=== PATIENT | female | born 1995 | race American Indian/Alaskan Native ===

== ENCOUNTER 2017-03-23 02:22 | Inpatient (IN) | payer OTHER ==
[2017-03-23] MEDS ORDERED: Citric Acid/Sodium Citrate Solution 30 ML Cup PO ONE (02:54)
[2017-03-23] MEDS ORDERED: Sodium Chloride 0.9% 10 ML Syringe FLUSH PRN ×2 (02:54→06:08)
[2017-03-23] MEDS ORDERED: ceFAZolin 2 GM in Premix Bag 1 BAG IV ONE (02:54)
[2017-03-23] MEDS ORDERED: ceFAZolin 1 GM in Premix Bag 1 BAG IV ONE (02:54)
[2017-03-23] MEDS ORDERED: Metoclopramide 10 MG/2 ML SDV IVPUSH ONE (02:54)
[2017-03-23] MEDS ORDERED: Oxytocin/Lactated Ringers 10 UNIT/1,000 ML BAG IV SCH (03:00)
[2017-03-23] MEDS: Lactated Ringers 1,000 ML IV SCH ×2 (03:17→04:10)
[2017-03-23] MEDS ORDERED: Bupivacaine 0.5% 30 ML SDV ONE (04:26)
[2017-03-23] MEDS ORDERED: Morphine PF 10 MG/10 ML SDV ONE (04:42)
[2017-03-23] MEDS ORDERED: ceFAZolin 1 GM Vial ONE ×2 (04:42→05:19)
[2017-03-23] MEDS ORDERED: Oxytocin 10 Units/1 ML SDV ONE (04:45)
[2017-03-23] MEDS ORDERED: Phenylephrine 1% 10 MG/ML SDV ONE (04:46)
--- NOTE | 2017-03-23 04:49 | PCM.LDHP ---
L&D History of Present Illness - General Date of Service: 03/23/17 Admit Problem/Dx: Patient Status Order with Admit Dx/Problem 03/23/17 02:56 Patient Status [ADT] Routine Admission Diagnosis/Problem Admission Diagnosis/Problem Source of Information: Patient History Limitations: Reports: No Limitations - History of Present Illness Introduction:: 22-year-old previous section planning repeat section declined vaginal after section () GBS positive gestational diabetes and recurrent urinary tract infections of complicated this . The patient started sadaf possibly 0030 hours on 03/23/17. Patient has had no leakage of fluid. Ancef 2 g has been ordered prior surgery along with SCDs. 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: , Other (See Below) : 2 Para: 1 (1001) Other OB/BYN History: 1 prior Endocrine/Metabolic History: Reports: Diabetes, Gestational - Infectious Disease History Infectious Disease History: Reports: Chicken Pox - Past Surgical History HEENT Surgical History: Reports: Oral Surgery, Tonsillectomy Social & Family History - Tobacco Use Smoking Status *Q: Former Smoker Packs/Tins Daily: 0.5 Used Tobacco, but Quit: Yes Month Tobacco Last Used: may Second Hand Smoke Exposure: No - Alcohol Use Days Per Week of Alcohol Use: 0 - Recreational Drug Use Recreational Drug Use: No H&P Review of Systems - Review of Systems: Review Of Systems: See Below General: Reports: No Symptoms HEENT: Reports: No Symptoms Pulmonary: Reports: No Symptoms Cardiovascular: Reports: No Symptoms Gastrointestinal: Reports: No Symptoms Genitourinary: Reports: No Symptoms Musculoskeletal: Reports: No Symptoms Skin: Reports: No Symptoms Psychiatric: Reports: No Symptoms Neurological: Reports: No Symptoms Hematologic/Lymphatic: Reports: No Symptoms Immunologic: Reports: No Symptoms L&D Exam - Exam Exam: See Below - Vital Signs Vital Signs: Last Vital Signs Temp 97.6 F 03/23/17 02:23 Pulse 94 03/23/17 02:23 Resp 16 03/23/17 02:23 BP 127/69 03/23/17 02:23 Pulse Ox Weight: 273 lb 8 oz - OB Specific Contraction Duration (sec): 60 Contraction Frequency (min): Every 2-3 Contraction Intensity: Moderate Movement: Active Heart Tones: Present Heart Tones per Min: 140 Heart Rate (FHR) Variability: Moderate (6-25 bmp) Presentation: Vertex - Perla Score Perla Score Cervix Position: Anterior Perla Score Consistency: Soft Perla Score Effacement: 31-50% Eprla Score Dilation: 1-2 cm Perla Score 's Station: -3 Perla Score Total: 6 - Exam General: Alert, Oriented HEENT: Conjunctiva Clear, Mucosa Moist & [place], Posterior Pharynx Clear, TMs Clear, PERRLA Neck: Supple, Trachea Midline Lungs: Clear to Auscultation, Normal Respiratory Effort Cardiovascular: Regular Rate, Regular Rhythm GI/Abdominal Exam: Normal Bowel Sounds, Soft, Non-Tender, No Organomegaly, No Distention, No Abnormal Bruit, No Mass, Pelvis Stable Genitourinary: Normal external exam, Normal bimanual exam, Normal speculum exam Back Exam: Normal Inspection, Full Range of Motion Extremities: Normal Inspection, Normal Range of Motion, Non-Tender, No Pedal Edema, Normal Capillary Refill Skin: Warm, Dry, Intact Neurological: Reflexes Equal Bilateral Psychiatric: Alert, Normal Affect, Normal Mood - Patient Data Lab Results Last 24 hrs: Laboratory Results - last 24 hr 03/23/17 03/23/17 Range/Units 03:08 03:08 WBC 10.11 H (3.98-10.04) K/mm3 RBC 4.44 (3.98-5.22) M/mm3 Hgb 12.9 (11.2-15.7) gm/L Hct 38.3 (34.1-44.9) % MCV 86.3 (79.4-94.8) fl MCH 29.1 (25.6-32.2) pg MCHC 33.7 (32.2-35.5) g/dl RDW Std Deviation 42.3 (36.4-46.3) fL Plt Count 253 (182-369) K/mm3 MPV 9.7 (9.4-12.3) fl Neut % (Auto) 69.0 (34.0-71.1) % Lymph % (Auto) 22.5 (19.3-51.7) % [place] % (Auto) 7.1 (4.7-12.5) % Eos % (Auto) 0.9 (0.7-5.8) Baso % (Auto) 0.2 (0.1-1.2) % Neut # (Auto) 6.98 H (1.56-6.13) K/mm3 Lymph # (Auto) 2.27 (1.18-3.74) K/mm3 [place] # (Auto) 0.72 H (0.24-0.36) K/mm3 Eos # (Auto) 0.09 (0.04-0.36) K/mm3 Baso # (Auto) 0.02 (0.01-0.08) K/mm3 Blood Type O POSITIVE Gel Antibody Screen Negative Result Diagrams: 03/23/17 03:08 - Problem List (1) 38 weeks gestation of SNOMED Code(s): 69297376 ICD Code: Z3A.38 - 38 WEEKS GESTATION OF Status: Acute Current Visit: Yes (2) GBS carrier SNOMED Code(s): 2135411889727 ICD Code: Z22.330 - CARRIER OF GROUP B STREPTOCOCCUS Status: Acute Current Visit: Yes (3) delivery, delivered, current hospitalization SNOMED Code(s): 049167484 ICD Code: O82 - ENCOUNTER FOR DELIVERY WITHOUT INDICATION Status: Acute Current Visit: Yes (4) Gestational diabetes SNOMED Code(s): 14061003 ICD Code: O24.419 - GESTATIONAL DIABETES MELLITUS IN , UNSP CONTROL Status: Acute Current Visit: Yes Qualifiers: Gestational diabetes mellitus control: diet-controlled Trimester: third trimester Qualified Code(s): O24.410 - Gestational diabetes mellitus in , diet controlled Problem List Initiated/Reviewed/Updated: No Orders Last 24hrs: Active Orders 24 hr Category Date Time Status Patient Status [ADT] Routine ADT 03/23/17 02:56 Active Antiembolic Devices [RC] .Routine Care 03/23/17 02:58 Active Communication Order [RC] ROUTINE Care 03/23/17 02:56 Active Heart Tones [RC] PER UNIT ROUTINE Care 03/23/17 02:56 Active Peripheral IV Care [RC] . DIRECTED Care 03/23/17 02:56 Active Procedure Site Prep Instruct [RC] ASDIRECTED Care 03/23/17 02:56 Active Urinary Catheter Assessment [RC] ASDIRECTED Care 03/23/17 02:54 Active VTE/DVT Education [RC] PER UNIT ROUTINE Care 03/23/17 02:58 Active Verify Patient Consent Obtain [RC] PER UNIT ROUTINE Care 03/23/17 02:56 Active Vital Signs [RC] PFP Care 03/23/17 02:56 Active FLU Vacc [id number](6MOS UP)/PF [Flulaval Quad [id number] Med 03/23/17 10:00 Once ] 60 mcg IM .ONCE ONE Lactated Ringers [Ringers, Lactated] 1,000 ml Med 03/23/17 03:00 Active IV ASDIRECTED Oxytocin/Lactated Ringers [Pitocin in LR 10 Units/1,000 Med 03/23/17 03:00 Active ML] 10 unit in 1,000 ml IV ASDIRECTED Sodium Chloride 0.9% [Saline Flush] Med 03/23/17 02:54 Active 10 ml FLUSH ASDIRECTED PRN DVT/VTE Prophylaxis Reflex [OM.PC] Routine Oth 03/23/17 02:54 Ordered Peripheral IV Insertion Adult [OM.PC] Routine Oth 03/23/17 02:56 Ordered Schedule Procedure [COMM] Per Unit Routine Oth 03/23/17 02:56 Ordered Resuscitation Status Routine Resus Stat 03/23/17 02:54 Ordered Medication Orders Lactated Ringer's (Ringers, Lactated) 1,000 mls @ 125 mls/hr IV ASDIRECTED [facility] Last Admin: 03/23/17 04:10 Dose: 125 mls/hr Infusion: 03/23/17 04:10 Dose: 125 mls/hr Admin: 03/23/17 03:17 Dose: 125 mls/hr Oxytocin/Lactated Ringer's (Pitocin In Lr 10 Units/1,000 Ml) 10 unit in 1,000 mls @ 100 mls/hr IV ASDIRECTED SABINO PRN Reason: Protocol Influenza Virus Vaccine (Flulaval Quad ) 60 mcg IM .ONCE ONE Stop: 03/23/17 10:01 Sodium Chloride (Saline Flush) 10 ml FLUSH ASDIRECTED PRN PRN Reason: Keep Vein Open
[2017-03-23] MEDS ORDERED: Ketorolac 30 MG/ML SDV ONE (05:56)
--- NOTE | 2017-03-23 06:01 | PCM.OPNOTE ---
- General Post-Op/Procedure Note Date of Surgery/Procedure: 03/23/17 Operative Procedure(s): Repeat low segment transverse Pre Op Diagnosis: 38 weeks 6 days estimated gestational age, previous section, gestational diabetes, group B strep carrier Post-Op Diagnosis: Same Anesthesia Technique: Spinal Primary Surgeon: Jose Lombardo Secondary Surgeon: Frank Lizarraga Anesthesia Provider: Pineda Weinberg Reason Milker Machine Was Necessary: Patient safety decrease comorbidity, co-mortality, retraction, obese patient, facility standard of care. Role of Milker Machine: Patient safety, retraction, reduce operating time. Fluid Replacement, Intraop: 3,500 Output, Urine Amount: 475 EBL in mLs: 800 Drain/Tube Comments:: Becerra catheter Complications: None Condition: Good Free Text/Narrative:: Intake & Output 03/22/17 03/22/17 03/23/17 14:59 22:59 06:59 Intake Total 1000 Balance 1000 Patient was transported to operating room #1 and placed under spinal anesthesia in the supine position wedge under the right hip and right flank. Prepared and draped in a sterile fashion including vaginal prep and Becerra catheter placed gravity drainage and abdominal prep performed. SCDs in place and functioning prior surgery 3 g of Ancef given prior surgery. Timeout performed. Adequate level of anesthesia was confirmed patient's was brought to the operating room injecting 20 mL of 0.5% Marcaine in the area of the planned incision incision was made sharp section carried to into the anterior fascia peritoneal cavity was entered without difficulty bladder flap created pushed caudad the low uterine segment had thinned out due to her recurrent contractions. The low segment transverse performed amnionic fluid clear upon entry into the amnionic cavity. The vacuum extraction was required attempted with mushroom first 10 seconds in the green, replaced with final vacuum 15 seconds in the green with delivery of a female liveborn 0527 hrs. on Wednesday03/23/17 weight 8 lbs. 12 oz. 8/9 at one and [address] [employer] in attendance. Cord blood was collected from three-vessel cord the placenta was removed manually endometrial cavity inspected sponge needle pack asthma sharp count correct times one the uterine incision closed in 2 layers with 0 Monocryl running locking suture for the first layer and second layer modified [place]t horizontal dictating suture of 0 Monocryl as well. 2 additional [id number] sutures were placed for hemostasis utilizing 0 Monocryl. Both tubes and ovaries were normal clot screen from the gutters and cul-de-sac uterus replaced into the abdominal cavity and the area of surgery inspected no bleeding sponge needle pack asthma sharp count correct 2. Anterior fascia was closed with a running suture of #1 PDS irrigation carried out for the subcutaneous tissue and 3 interrupted sutures of 0 Monocryl placed to approximate the subcutaneous tissue and the skin was closed subcuticular with 3-0 Monocryl Elmer needle. Preneo Dermabond applied. Patient transported postanesthesia care unit in satisfactory condition no blood transfusions required.
[2017-03-23] MEDS ORDERED: diphenhydrAMINE 50 MG/ML SDV IVPUSH PRN (06:04)
--- NOTE | 2017-03-23 06:06 | PCM.POSTAN ---
POST ANESTHESIA ASSESSMENT - MENTAL STATUS Mental Status: Alert, Oriented - VITAL SIGNS Pulse Rate: 83 SaO2: 96 Resp Rate: 8 Blood Pressure: 97/51 Temperature: 36.2 C - RESPIRATORY Respiratory Status: Respiratory Rate WNL, Airway Patent, O2 Saturation Stable - CARDIOVASCULAR CV Status: Pulse Rate WNL, Blood Pressure Stable - GASTROINTESTINAL GI Status: No Symptoms - PAIN Pain Score: 0 - POST OP HYDRATION Hydration Status: Adequate & Stable - OBSERVATIONS Free Text/Narrative:: no anesthesia complications noted
[2017-03-23] MEDS ORDERED: Lactated Ringers 1,000 ML ONE ×3 (06:07→09:29)
--- NOTE | 2017-03-23 06:07 | PCM.PREANE ---
Preanesthetic Assessment - Anesthesia/Transfusion/Family Hx Anesthesia History: Prior Anesthesia Without Reaction Family History of Anesthesia Reaction: No Transfusion History: No Prior Transfusion(s) - Review of Systems General: No Symptoms Pulmonary: No Symptoms Cardiovascular: No Symptoms Gastrointestinal: No Symptoms Neurological: No Symptoms Other: Reports: Diabetes (check at 0545 was 85) - Physical Assessment NPO Status Date: 03/23/17 NPO Status Time: 03:00 Pulse: 83 O2 Sat by Pulse Oximetry: 96 Respiratory Rate: 8 Blood Pressure: 97/51 Temperature: 36.2 C Vital Signs: Last Vital Signs Temp 36.2 C 03/23/17 06:06 Pulse 83 03/23/17 06:06 Resp 8 L 03/23/17 06:06 BP 97/51 L 03/23/17 06:06 Pulse Ox 96 03/23/17 06:06 Height: 1.65 m Weight: 124.058 kg ASA Class: 2E Mental Status: Alert & Oriented x3 Airway Class: Mallampati = 2 Dentition: Reports: Normal Dentition Thyro-Mental Finger Breadths: 3 Mouth Opening Finger Breadths: 3 ROM/Head Extension: Full Lungs: Clear to Auscultation, Normal Respiratory Effort Cardiovascular: Regular Rate, Regular Rhythm - Lab Values: Laboratory Last Values WBC 10.11 K/mm3 (3.98-10.04) H 03/23/17 03:08 RBC 4.44 M/mm3 (3.98-5.22) 03/23/17 03:08 Hgb 12.9 gm/L (11.2-15.7) 03/23/17 03:08 Hct 38.3 % (34.1-44.9) 03/23/17 03:08 MCV 86.3 fl (79.4-94.8) 03/23/17 03:08 MCH 29.1 pg (25.6-32.2) 03/23/17 03:08 MCHC 33.7 g/dl (32.2-35.5) 03/23/17 03:08 RDW Std Deviation 42.3 fL (36.4-46.3) 03/23/17 03:08 Plt Count 253 K/mm3 (182-369) 03/23/17 03:08 MPV 9.7 fl (9.4-12.3) 03/23/17 03:08 Neut % (Auto) 69.0 % (34.0-71.1) 03/23/17 03:08 Lymph % (Auto) 22.5 % (19.3-51.7) 03/23/17 03:08 [place] % (Auto) 7.1 % (4.7-12.5) 03/23/17 03:08 Eos % (Auto) 0.9 (0.7-5.8) 03/23/17 03:08 Baso % (Auto) 0.2 % (0.1-1.2) 03/23/17 03:08 Neut # (Auto) 6.98 K/mm3 (1.56-6.13) H 03/23/17 03:08 Lymph # (Auto) 2.27 K/mm3 (1.18-3.74) 03/23/17 03:08 [place] # (Auto) 0.72 K/mm3 (0.24-0.36) H 03/23/17 03:08 Eos # (Auto) 0.09 K/mm3 (0.04-0.36) 03/23/17 03:08 Baso # (Auto) 0.02 K/mm3 (0.01-0.08) 03/23/17 03:08 POC Glucose 85 mg/dL (70-105) 03/23/17 04:46 Blood Type O POSITIVE 03/23/17 03:08 Gel Antibody Screen Negative 03/23/17 03:08 - Allergies Allergies/Adverse Reactions: Allergies Allergy/AdvReac Type Severity Reaction Status Date / Time No Known Allergies Allergy Verified 03/23/17 02:43 - Anesthesia Plan Pre-Op Medication Ordered: Antacids - Acknowledgements Anesthesia Type Planned: Spinal Pt an Appropriate Candidate for the Planned Anesthesia: Yes Alternatives and Risks of Anesthesia Discussed w Pt/Guardian: Yes Pt/Guardian Understands and Agrees with Anesthesia Plan: Yes PreAnesthesia Questionnaire Gastrointestinal History: Reports: GERD Genitourinary History: Reports: UTI, Recurrent 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: , Other (See Below) Other OB/BYN History: 1 prior Endocrine/Metabolic History: Reports: Diabetes, Gestational - Infectious Disease History Infectious Disease History: Reports: Chicken Pox - Past Surgical History HEENT Surgical History: Reports: Oral Surgery, Tonsillectomy - SUBSTANCE USE Smoking Status *Q: Former Smoker Tobacco Use Within Last Twelve Months: No Second Hand Smoke Exposure: No Days Per Week of Alcohol Use: 0 Recreational Drug Use History: No - HOME MEDS Home Medications: Home Meds Nitrofurantoin [place]/Macrocryst [Macrobid] 03/23/17 [History] - CURRENT (IN HOUSE) MEDS Current Meds: Current Medications Diphenhydramine HCl (Benadryl) 25 mg IVPUSH Q6H PRN PRN Reason: Itching Lactated Ringer's (Ringers, Lactated) 1,000 mls @ 125 mls/hr IV ASDIRECTED SABINO Last Admin: 03/23/17 04:10 Dose: 125 mls/hr Oxytocin/Lactated Ringer's (Pitocin In Lr 10 Units/1,000 Ml) 10 unit in 1,000 mls @ 100 mls/hr IV ASDIRECTED SABINO PRN Reason: Protocol Influenza Virus Vaccine (Flulaval Quad [id number]) 60 mcg IM .ONCE ONE Stop: 03/23/17 10:01 Sodium Chloride (Saline Flush) 10 ml FLUSH ASDIRECTED PRN PRN Reason: Keep Vein Open Discontinued Medications Bupivacaine HCl (Marcaine 0.5%) Confirm Administered Dose 30 ml .ROUTE .STK-MED ONE Stop: 03/23/17 04:27 Cefazolin Sodium (Ancef) Confirm Administered Dose 2 gm .ROUTE .STK-MED ONE Stop: 03/23/17 04:43 Cefazolin Sodium (Ancef) Confirm Administered Dose 1 gm .ROUTE .STK-MED ONE Stop: 03/23/17 05:20 Citric Acid/Sodium Citrate (Bicitra Solution) 30 ml PO ONETIME ONE Stop: 03/23/17 02:55 Last Admin: 03/23/17 04:35 Dose: 30 ml Cefazolin Sodium/Dextrose 1 gm (/ Premix) 50 mls @ 100 mls/hr IV ONETIME ONE Stop: 03/23/17 03:23 Cefazolin Sodium/Dextrose 2 gm (/ Premix) 50 mls @ 100 mls/hr IV ONETIME ONE Stop: 03/23/17 03:23 Lactated Ringer's (Ringers, Lactated) Confirm Administered Dose 1,000 mls @ as directed .ROUTE .STK-MED ONE Stop: 03/23/17 06:08 Lactated Ringer's (Ringers, Lactated) Confirm Administered Dose 1,000 mls @ as directed .ROUTE .STK-MED ONE Stop: 03/23/17 06:09 Influenza Virus Vaccine (Pharmacy To Dose - Influenza Vaccine) 1 each IM ONETIME ONE Stop: 03/23/17 03:18 Ketorolac Tromethamine (Toradol) Confirm Administered Dose 30 mg .ROUTE .STK- MED ONE Stop: 03/23/17 05:57 Metoclopramide HCl (Reglan) 10 mg IVPUSH ONETIME ONE Stop: 03/23/17 02:55 Last Admin: 03/23/17 04:31 Dose: 10 mg Morphine Sulfate (Duramorph Pf) Confirm Administered Dose 10 mg .ROUTE .STK-MED ONE Stop: 03/23/17 04:43 Oxytocin (Pitocin) Confirm Administered Dose 20 unit .ROUTE .STK-MED ONE Stop: 03/23/17 04:46 Phenylephrine HCl (Trino-Synephrine) Confirm Administered Dose 10 mg .ROUTE .STK- MED ONE Stop: 03/23/17 04:47
[2017-03-23] MEDS ORDERED: ePHEDrine 50 MG/ML SDV IVPUSH PRN (06:08)
[2017-03-23] MEDS ORDERED: Witch Hazel Medicated Pads 100/Jar TOP PRN (06:08)
[2017-03-23] MEDS ORDERED: Naloxone 0.4 MG/ML SDV IVPUSH PRN (06:08)
[2017-03-23] MEDS ORDERED: Ondansetron 4 MG/2 ML SDV IV PRN (06:08)
[2017-03-23] MEDS ORDERED: Docusate Sodium 100 MG Cap PO PRN (06:08)
[2017-03-23] MEDS ORDERED: Lanolin 100% Cream 7 GM Tube TOP PRN (06:08)
[2017-03-23] MEDS ORDERED: Acetaminophen 325 MG Tab PO PRN (06:08)
[2017-03-23] MEDS ORDERED: Dextrose 5%-Lactated Ringers 1,000 ML IV SCH (06:15)
[2017-03-23] MEDS: diphenhydrAMINE 50 MG/ML SDV IVPUSH PRN ×2 (08:12→13:45)
[2017-03-23] MEDS ORDERED: Misoprostol 200 MCG Tab PO STA (09:25)
[2017-03-23] MEDS ORDERED: Misoprostol 200 MCG Tab ONE (09:28)
[2017-03-23] MEDS ORDERED: Lactated Ringers 500 ML IV ONE (09:28)
[2017-03-23] MEDS: Simethicone 80 MG Tab.Chew PO SCH ×4 (09:38→21:56)
[2017-03-23] MEDS ORDERED: FLU Vacc QS 2017-18 (6mos UP)/PF 60 MCG/0.5 ML Syringe IM ONE (10:00)
[2017-03-23] MEDS: Acetaminophen/oxyCODONE 325-5 MG Tab PO PRN (10:14)
--- NOTE | 2017-03-23 10:19 | PCM.PN ---
- General Info Date of Service: 03/23/17 Admission Dx/Problem (Free Text): Patient Status Order with Admit Dx/Problem 03/23/17 02:56 Patient Status [ADT] Routine Admission Diagnosis/Problem Admission Diagnosis/Problem Subjective Update: Patient had increased vaginal bleeding and low blood pressure tachycardia pulse oximetry 98 hemoglobin 9.9 obtained just a little while ago after surgery preop was 12.9 hemoglobin given Cytotec 200 g 2 buccal 1 each cheek to control vaginal bleeding. No shortness of breath patient is awake alert and able to communicate without difficulty. A pressure 106/64 pulse 111-120 pulse oximetry 98 chest is clear no abnormal breath sounds heart rate 116 at time of auscultation. Abdomen is soft uterus is firm no heavy vaginal bleeding no leg cramping incision normal output has been low since surgery will give 10 mg of Lasix IV, type and cross match for 4 units packed red blood cells repeat CBC at noon. Functional Status: Reports: Pain Controlled - Review of Systems General: Reports: No Symptoms HEENT: Reports: No Symptoms Pulmonary: Reports: No Symptoms Cardiovascular: Reports: No Symptoms Gastrointestinal: Reports: Abdominal Pain (Assessment normal postoperative C- section pain day of surgery.) Genitourinary: Reports: No Symptoms Musculoskeletal: Reports: No Symptoms Skin: Reports: No Symptoms Neurological: Reports: No Symptoms Psychiatric: Reports: No Symptoms - Patient Data Vitals - Most Recent: Last Vital Signs Temp 96.3 F 03/23/17 08:00 Pulse 133 H 03/23/17 09:41 Resp 16 03/23/17 09:30 BP 107/64 03/23/17 09:30 Pulse Ox 99 03/23/17 09:41 Weight - Most Recent: 273 lb 8 oz I&O - Last 24 Hours: Intake & Output 03/22/17 03/23/17 03/23/17 22:59 06:59 14:59 Intake Total 4950 1000 Output Total 950 80 Balance 4000 920 Lab Results Last 24 Hours: Laboratory Results - last 24 hr 03/23/17 03/23/17 03/23/17 Range/Units 03:08 03:08 04:46 WBC 10.11 H (3.98-10.04) K/mm3 RBC 4.44 (3.98-5.22) M/mm3 Hgb 12.9 (11.2-15.7) gm/L Hct 38.3 (34.1-44.9) % MCV 86.3 (79.4-94.8) fl MCH 29.1 (25.6-32.2) pg MCHC 33.7 (32.2-35.5) g/dl RDW Std Deviation 42.3 (36.4-46.3) fL Plt Count 253 (182-369) K/mm3 MPV 9.7 (9.4-12.3) fl Neut % (Auto) 69.0 (34.0-71.1) % Lymph % (Auto) 22.5 (19.3-51.7) % [place] % (Auto) 7.1 (4.7-12.5) % Eos % (Auto) 0.9 (0.7-5.8) Baso % (Auto) 0.2 (0.1-1.2) % Neut # (Auto) 6.98 H (1.56-6.13) K/mm3 Lymph # (Auto) 2.27 (1.18-3.74) K/mm3 [place] # (Auto) 0.72 H (0.24-0.36) K/mm3 Eos # (Auto) 0.09 (0.04-0.36) K/mm3 Baso # (Auto) 0.02 (0.01-0.08) K/mm3 POC Glucose 85 (70-105) mg/dL Blood Type O POSITIVE Gel Antibody Screen Negative 03/23/17 03/23/17 03/23/17 Range/Units 06:09 09:45 10:08 WBC 11.82 H (3.98-10.04) K/mm3 RBC 3.47 L (3.98-5.22) M/mm3 Hgb 9.9 L (11.2-15.7) gm/L Hct 30.2 L (34.1-44.9) % MCV 87.0 (79.4-94.8) fl MCH 28.5 (25.6-32.2) pg MCHC 32.8 (32.2-35.5) g/dl RDW Std Deviation 41.5 (36.4-46.3) fL Plt Count 213 (182-369) K/mm3 MPV 9.5 (9.4-12.3) fl Neut % (Auto) (34.0-71.1) % Lymph % (Auto) (19.3-51.7) % [place] % (Auto) (4.7-12.5) % Eos % (Auto) (0.7-5.8) Baso % (Auto) (0.1-1.2) % Neut # (Auto) (1.56-6.13) K/mm3 Lymph # (Auto) (1.18-3.74) K/mm3 [place] # (Auto) (0.24-0.36) K/mm3 Eos # (Auto) (0.04-0.36) K/mm3 Baso # (Auto) (0.01-0.08) K/mm3 POC Glucose 102 111 H (70-105) mg/dL Blood Type Gel Antibody Screen Med Orders - Current: Current Medications Acetaminophen (Tylenol) 650 mg PO Q4H PRN PRN Reason: mild pain or fever Diphenhydramine HCl (Benadryl) 25 mg IVPUSH Q6H PRN PRN Reason: Itching or Nausea Last Admin: 03/23/17 08:12 Dose: 25 mg Docusate Sodium (Colace) 100 mg PO Q12H PRN PRN Reason: Constipation Emollient Ointment (Lansinoh Hpa) 0 gm TOP ASDIRECTED PRN PRN Reason: Sore Nipples Ephedrine Sulfate (Ephedrine Sulfate) 5 mg IVPUSH SEECOMMENT PRN PRN Reason: Other Furosemide (Lasix) 10 mg IVPUSH NOW ONE Stop: 03/23/17 10:12 Dextrose/Lactated Ringer's (Dextrose 5%-Lactated Ringers) 1,000 mls @ 125 mls/ hr IV ASDIRECTED [facility] Stop: 03/23/17 14:14 Last Admin: 03/23/17 08:12 Dose: 125 mls/hr Lactated Ringer's (Ringers, Lactated) 500 mls @ 500 mls/hr IV .BOLUS ONE Stop: 03/23/17 10:27 Last Admin: 03/23/17 09:38 Dose: 500 mls/hr Ibuprofen (Motrin) 600 mg PO Q6H PRN PRN Reason: mild pain or fever Ketorolac Tromethamine (Toradol) 30 mg IVPUSH Q6H [facility] Stop: 03/24/17 00:01 Naloxone HCl (Narcan) 0.1 mg IVPUSH SEECOMMENT PRN PRN Reason: Respiratory Depression Ondansetron HCl (Zofran) 4 mg IV Q8H PRN PRN Reason: Nausea/Vomiting Oxycodone/Acetaminophen (Percocet 325-5 Mg) 2 tab PO Q4H PRN PRN Reason: Pain (moderate 4-6) Simethicone (Simethicone) 80 mg PO PCBED [facility] Last Admin: 03/23/17 09:38 Dose: 80 mg Sodium Chloride (Saline Flush) 10 ml FLUSH ASDIRECTED PRN PRN Reason: Keep Vein Open Witch Amira (Tucks) 1 pad TOP ASDIRECTED PRN PRN Reason: Perineal Comfort Measure Discontinued Medications Bupivacaine HCl (Marcaine 0.5%) Confirm Administered Dose 30 ml .ROUTE .STK-MED ONE Stop: 03/23/17 04:27 Last Admin: 03/23/17 05:21 Dose: 20 ml Cefazolin Sodium (Ancef) Confirm Administered Dose 2 gm .ROUTE .STK-MED ONE Stop: 03/23/17 04:43 Cefazolin Sodium (Ancef) Confirm Administered Dose 1 gm .ROUTE .STK-MED ONE Stop: 03/23/17 05:20 Citric Acid/Sodium Citrate (Bicitra Solution) 30 ml PO ONETIME ONE Stop: 03/23/17 02:55 Last Admin: 03/23/17 04:35 Dose: 30 ml Diphenhydramine HCl (Benadryl) 25 mg IVPUSH Q6H PRN PRN Reason: Itching Cefazolin Sodium/Dextrose 1 gm (/ Premix) 50 mls @ 100 mls/hr IV ONETIME ONE Stop: 03/23/17 03:23 Last Admin: 03/23/17 09:40 Dose: Not Given Cefazolin Sodium/Dextrose 2 gm (/ Premix) 50 mls @ 100 mls/hr IV ONETIME ONE Stop: 03/23/17 03:23 Last Admin: 03/23/17 09:40 Dose: Not Given Lactated Ringer's (Ringers, Lactated) 1,000 mls @ 125 mls/hr IV ASDIRECTED [facility] Last Admin: 03/23/17 04:10 Dose: 125 mls/hr Oxytocin/Lactated Ringer's (Pitocin In Lr 10 Units/1,000 Ml) 10 unit in 1,000 mls @ 100 mls/hr IV ASDIRECTED [facility] PRN Reason: Protocol Lactated Ringer's (Ringers, Lactated) Confirm Administered Dose 1,000 mls @ as directed .ROUTE .STK-MED ONE Stop: 03/23/17 06:08 Lactated Ringer's (Ringers, Lactated) Confirm Administered Dose 1,000 mls @ as directed .ROUTE .STK-MED ONE Stop: 03/23/17 06:09 Lactated Ringer's (Ringers, Lactated) Confirm Administered Dose 1,000 mls @ as directed .ROUTE .STK-MED ONE Stop: 03/23/17 09:30 Last Admin: 03/23/17 09:41 Dose: Not Given Influenza Virus Vaccine (Pharmacy To Dose - Influenza Vaccine) 1 each IM ONETIME ONE Stop: 03/23/17 03:18 Influenza Virus Vaccine (Flulaval Quad 7300-0317) 60 mcg IM .ONCE ONE Stop: 03/23/17 10:01 Ketorolac Tromethamine (Toradol) Confirm Administered Dose 30 mg .ROUTE .STK- MED ONE Stop: 03/23/17 05:57 Metoclopramide HCl (Reglan) 10 mg IVPUSH ONETIME ONE Stop: 03/23/17 02:55 Last Admin: 03/23/17 04:31 Dose: 10 mg Misoprostol (Cytotec) 400 mcg PO NOW STA Stop: 03/23/17 09:26 Last Admin: 03/23/17 09:37 Dose: 400 mcg Misoprostol (Cytotec) Confirm Administered Dose 400 mcg .ROUTE .STK-MED ONE Stop: 03/23/17 09:29 Last Admin: 03/23/17 09:38 Dose: Not Given Morphine Sulfate (Duramorph Pf) Confirm Administered Dose 10 mg .ROUTE .STK-MED ONE Stop: 03/23/17 04:43 Oxytocin (Pitocin) Confirm Administered Dose 20 unit .ROUTE .STK-MED ONE Stop: 03/23/17 04:46 Phenylephrine HCl (Trino-Synephrine) Confirm Administered Dose 10 mg .ROUTE .STK- MED ONE Stop: 03/23/17 04:47 Sodium Chloride (Saline Flush) 10 ml FLUSH ASDIRECTED PRN PRN Reason: Keep Vein Open - Exam General: Alert, Oriented HEENT: Pupils Equal, Pupils Reactive, Mucous Membr. Moist/[place] Neck: Supple Lungs: Clear to Auscultation, Normal Respiratory Effort Cardiovascular: Regular Rate, Regular Rhythm GI/Abdominal Exam: Normal Bowel Sounds, Soft, Non-Tender, No Distention, No Abnormal Bruit, Other (Uterus is firm at umbilicus to U -1) (Female) Exam: Normal External Exam Extremities: Normal Inspection, Non-Tender, Normal Capillary Refill, Other ( Trace to 1+ pretibial edema present prior to surgery.) Skin: Warm, Dry, Intact Wound/Incisions: Healing Well Neurological: No New Focal Deficit Psy/Mental Status: Alert, Normal Affect, Normal Mood - Problem List & Annotations (1) 38 weeks gestation of SNOMED Code(s): 49521148 Code(s): Z3A.38 - 38 WEEKS GESTATION OF Status: Acute Current Visit: Yes (2) GBS carrier SNOMED Code(s): 5227105473332 Code(s): Z22.330 - CARRIER OF GROUP B STREPTOCOCCUS Status: Acute Current Visit: Yes (3) delivery, delivered, current hospitalization SNOMED Code(s): 154547348 Code(s): O82 - ENCOUNTER FOR DELIVERY WITHOUT INDICATION Status: Acute Current Visit: Yes (4) Gestational diabetes SNOMED Code(s): 03273310 Code(s): O24.419 - GESTATIONAL DIABETES MELLITUS IN , UNSP CONTROL Status: Acute Current Visit: Yes Qualifiers: Gestational diabetes mellitus control: diet-controlled Trimester: third trimester Qualified Code(s): O24.410 - Gestational diabetes mellitus in , diet controlled - Problem List Review Problem List Initiated/Reviewed/Updated: No - My Orders Last 24 Hours: My Active Orders 03/23/17 02:54 Urinary Catheter Assessment [RC] ASDIRECTED Resuscitation Status Routine 03/23/17 02:56 Heart Tones [RC] PER UNIT ROUTINE Peripheral IV Care [RC] . DIRECTED Vital Signs [RC] PFP 03/23/17 02:58 Antiembolic Devices [RC] .Routine VTE/DVT Education [RC] PER UNIT ROUTINE 03/23/17 05:00 Insert Urinary Catheter [OM.PC] Q24H 03/23/17 06:08 Ambulate [RC] PER UNIT ROUTINE Antiembolic Devices [RC] PER UNIT ROUTINE Communication Order [RC] PER UNIT ROUTINE May Shower [RC] PER UNIT ROUTINE Notify Provider Intake and Out [RC] ASDIRECTED RT Incentive Spirometry [RC] Q2HWA Vital Signs [RC] Q1HR Acetaminophen [Tylenol] 650 mg PO Q4H PRN Acetaminophen/oxyCODONE [Percocet 325-5 MG] 2 tab PO Q4H PRN Docusate Sodium [Colace] 100 mg PO Q12H PRN Lanolin [Lansinoh HPA] See Dose Instructions TOP ASDIRECTED PRN Naloxone [Narcan] 0.1 mg IVPUSH SEECOMMENT PRN Ondansetron [Zofran] 4 mg IV Q8H PRN Sodium Chloride 0.9% [Saline Flush] 10 ml FLUSH ASDIRECTED PRN Witch Amira [Tucks] 1 pad TOP ASDIRECTED PRN diphenhydrAMINE [Benadryl] 25 mg IVPUSH Q6H PRN ePHEDrine [ePHEDrine Sulfate] 5 mg IVPUSH SEECOMMENT PRN Abdominal Binder [OM.PC] Per Unit Routine Assess Lochia [WOMSER] Per Unit Routine Assess Uterine Involution [WOMSER] Per Unit Routine Breast Pump [WOMSER] Per Unit Routine Convert IV to Saline Lock [OM.PC] Routine Medication Administration Instruction [OM.PC] Routine Peripheral IV Discontinue [OM.PC] Routine Sequential Compression Device [OM.PC] Per Unit Routine 03/23/17 06:15 Dextrose 5%-Lactated Ringers 1,000 ml IV ASDIRECTED 03/23/17 09:00 Simethicone 80 mg PO PCBED 03/23/17 09:28 Lactated Ringers [Ringers, Lactated] 500 ml IV .BOLUS 03/23/17 09:48 Urinary Catheter Assessment [RC] ASDIRECTED 03/23/17 10:11 Furosemide [Lasix] 10 mg IVPUSH NOW ONE 03/23/17 12:00 Ketorolac [Toradol] 30 mg IVPUSH Q6H 03/23/17 Breakfast Clear Liquid Diet [DIET] 03/23/17 Lunch Regular Diet [DIET] 03/24/17 05:11 CBC WITH AUTO DIFF [HEME] AM 03/24/17 06:03 Urinary Catheter Removal [RC] Per Unit Routine 11/01/17 06:08 Ibuprofen [Motrin] 600 mg PO Q6H PRN - Plan Plan:: 1 repeat CBC at noon 2 Lasix 10 mg IV 3 type and crossmatch 4 units packed red blood cells in case needed 4 Percocet 2 tablets by mouth now 5 blood sugar 111
[2017-03-23] MEDS ORDERED: Furosemide 20 MG/2 ML VIAL IVPUSH ONE (10:20)
[2017-03-23] MEDS: Ketorolac 30 MG/ML SDV IVPUSH SCH ×2 (11:57→18:01)
--- NOTE | 2017-03-23 12:46 | PCM.SN ---
- Free Text/Narrative Note: BP 128/76, Pulse 118. No heavy vaginal bleeding. Percocet and Toradol helping pain management. Patient stable.
[2017-03-23] MEDS: Misoprostol 200 MCG Tab PO SCH ×2 (14:01→19:56)
[2017-03-23] MEDS ORDERED: Lactated Ringers 500 ML IV SCH (19:00)
[2017-03-24] MEDS: Ketorolac 30 MG/ML SDV IVPUSH SCH (00:03)
[2017-03-24] MEDS: Acetaminophen/oxyCODONE 325-5 MG Tab PO PRN ×3 (01:55→20:44)
[2017-03-24] MEDS: Misoprostol 200 MCG Tab PO SCH ×3 (01:56→21:08)
[2017-03-24] MEDS: Ibuprofen 600 MG Tab PO PRN ×2 (06:41→15:35)
[2017-03-24] MEDS ORDERED: Misoprostol 200 MCG Tab PO PRN (07:39)
--- NOTE | 2017-03-24 07:42 | PCM.PNPP ---
- General Info Date of Service: 03/24/17 Functional Status: Reports: Pain Controlled - Review of Systems General: Reports: No Symptoms (Ambulating without dizziness) HEENT: Reports: No Symptoms Pulmonary: Reports: No Symptoms Cardiovascular: Reports: No Symptoms Gastrointestinal: Reports: No Symptoms Genitourinary: Reports: No Symptoms Musculoskeletal: Reports: No Symptoms Skin: Reports: No Symptoms Neurological: Reports: No Symptoms Psychiatric: Reports: No Symptoms - General Info Date of Service: 03/24/17 - Patient Data Vital Signs - Most Recent: Last Vital Signs Temp 98.1 F 03/24/17 00:00 Pulse 97 03/24/17 04:15 Resp 16 03/24/17 06:00 BP 110/65 03/24/17 04:30 Pulse Ox 96 03/24/17 06:00 Weight - Most Recent: 273 lb 8 oz I&O - Last 24 Hours: Intake & Output 03/23/17 03/24/17 03/24/17 22:59 06:59 14:59 Intake Total 2400 1300 Output Total 410 1100 Balance 1990 200 Lab Results - Last 24 Hours: Laboratory Results - last 24 hr 03/23/17 03/23/17 03/23/17 Range/Units 03:08 09:45 10:08 WBC 11.82 H (3.98-10.04) K/mm3 RBC 3.47 L (3.98-5.22) M/mm3 Hgb 9.9 L (11.2-15.7) gm/L Hct 30.2 L (34.1-44.9) % MCV 87.0 (79.4-94.8) fl MCH 28.5 (25.6-32.2) pg MCHC 32.8 (32.2-35.5) g/dl RDW Std Deviation 41.5 (36.4-46.3) fL Plt Count 213 (182-369) K/mm3 MPV 9.5 (9.4-12.3) fl Neut % (Auto) (34.0-71.1) % Lymph % (Auto) (19.3-51.7) % [place] % (Auto) (4.7-12.5) % Eos % (Auto) (0.7-5.8) Baso % (Auto) (0.1-1.2) % Neut # (Auto) (1.56-6.13) K/mm3 Lymph # (Auto) (1.18-3.74) K/mm3 [place] # (Auto) (0.24-0.36) K/mm3 Eos # (Auto) (0.04-0.36) K/mm3 Baso # (Auto) (0.01-0.08) K/mm3 Manual Slide Review POC Glucose 111 H (70-105) mg/dL Blood Type O POSITIVE Gel Antibody Screen Negative Crossmatch See Detail 03/23/17 03/24/17 Range/Units 14:04 06:08 WBC 10.24 H 6.54 (3.98-10.04) K/mm3 RBC 3.27 L 2.67 L (3.98-5.22) M/mm3 Hgb 9.4 L 7.5 L (11.2-15.7) gm/L Hct 28.7 L 23.6 L (34.1-44.9) % MCV 87.8 88.4 (79.4-94.8) fl MCH 28.7 28.1 (25.6-32.2) pg MCHC 32.8 31.8 L (32.2-35.5) g/dl RDW Std Deviation 42.2 42.1 (36.4-46.3) fL Plt Count 229 189 (182-369) K/mm3 MPV 9.8 9.5 (9.4-12.3) fl Neut % (Auto) 55.7 (34.0-71.1) % Lymph % (Auto) 33.2 (19.3-51.7) % [place] % (Auto) 8.6 (4.7-12.5) % Eos % (Auto) 2.0 (0.7-5.8) Baso % (Auto) 0.0 L (0.1-1.2) % Neut # (Auto) 3.65 (1.56-6.13) K/mm3 Lymph # (Auto) 2.17 (1.18-3.74) K/mm3 [place] # (Auto) 0.56 H (0.24-0.36) K/mm3 Eos # (Auto) 0.13 (0.04-0.36) K/mm3 Baso # (Auto) 0.00 L (0.01-0.08) K/mm3 Manual Slide Review Abnormal smear POC Glucose (70-105) mg/dL Blood Type Gel Antibody Screen Crossmatch Med Orders - Current: Current Medications Acetaminophen (Tylenol) 650 mg PO Q4H PRN PRN Reason: mild pain or fever Diphenhydramine HCl (Benadryl) 25 mg IVPUSH Q6H PRN PRN Reason: Itching or Nausea Last Admin: 03/23/17 13:45 Dose: 25 mg Docusate Sodium (Colace) 100 mg PO Q12H PRN PRN Reason: Constipation Emollient Ointment (Lansinoh Hpa) 0 gm TOP ASDIRECTED PRN PRN Reason: Sore Nipples Ephedrine Sulfate (Ephedrine Sulfate) 5 mg IVPUSH SEECOMMENT PRN PRN Reason: Other Lactated Ringer's (Ringers, Lactated) 500 mls @ 250 mls/hr IV ASDIRECTED [facility] Last Admin: 03/23/17 19:50 Dose: 250 mls/hr Ibuprofen (Motrin) 600 mg PO Q6H PRN PRN Reason: mild pain or fever Last Admin: 03/24/17 06:41 Dose: 600 mg Misoprostol (Cytotec) 200 mcg PO BID PRN PRN Reason: Bleeding Naloxone HCl (Narcan) 0.1 mg IVPUSH SEECOMMENT PRN PRN Reason: Respiratory Depression Ondansetron HCl (Zofran) 4 mg IV Q8H PRN PRN Reason: Nausea/Vomiting Oxycodone/Acetaminophen (Percocet 325-5 Mg) 2 tab PO Q4H PRN PRN Reason: Pain (moderate 4-6) Last Admin: 03/24/17 01:55 Dose: 2 tab Simethicone (Simethicone) 80 mg PO PCBED [facility] Last Admin: 03/23/17 21:56 Dose: 80 mg Sodium Chloride (Saline Flush) 10 ml FLUSH ASDIRECTED PRN PRN Reason: Keep Vein Open Witch Amira (Tucks) 1 pad TOP ASDIRECTED PRN PRN Reason: Perineal Comfort Measure Discontinued Medications Bupivacaine HCl (Marcaine 0.5%) Confirm Administered Dose 30 ml .ROUTE .STK-MED ONE Stop: 03/23/17 04:27 Last Admin: 03/23/17 05:21 Dose: 20 ml Cefazolin Sodium (Ancef) Confirm Administered Dose 2 gm .ROUTE .STK-MED ONE Stop: 03/23/17 04:43 Cefazolin Sodium (Ancef) Confirm Administered Dose 1 gm .ROUTE .[facility]-MED ONE Stop: 03/23/17 05:20 Citric Acid/Sodium Citrate (Bicitra Solution) 30 ml PO ONETIME ONE Stop: 03/23/17 02:55 Last Admin: 03/23/17 04:35 Dose: 30 ml Diphenhydramine HCl (Benadryl) 25 mg IVPUSH Q6H PRN PRN Reason: Itching Furosemide (Lasix) 10 mg IVPUSH NOW ONE Stop: 03/23/17 10:21 Last Admin: 03/23/17 10:26 Dose: 10 mg Cefazolin Sodium/Dextrose 1 gm (/ Premix) 50 mls @ 100 mls/hr IV ONETIME ONE Stop: 03/23/17 03:23 Last Admin: 03/23/17 09:40 Dose: Not Given Cefazolin Sodium/Dextrose 2 gm (/ Premix) 50 mls @ 100 mls/hr IV ONETIME ONE Stop: 03/23/17 03:23 Last Admin: 03/23/17 09:40 Dose: Not Given Lactated Ringer's (Ringers, Lactated) 1,000 mls @ 125 mls/hr IV ASDIRECTED [facility] Last Admin: 03/23/17 04:10 Dose: 125 mls/hr Oxytocin/Lactated Ringer's (Pitocin In Lr 10 Units/1,000 Ml) 10 unit in 1,000 mls @ 100 mls/hr IV ASDIRECTED [facility] PRN Reason: Protocol Lactated Ringer's (Ringers, Lactated) Confirm Administered Dose 1,000 mls @ as directed .ROUTE .ST-MED ONE Stop: 03/23/17 06:08 Lactated Ringer's (Ringers, Lactated) Confirm Administered Dose 1,000 mls @ as directed .ROUTE .[facility]-MED ONE Stop: 03/23/17 06:09 Dextrose/Lactated Ringer's (Dextrose 5%-Lactated Ringers) 1,000 mls @ 125 mls/ hr IV ASDIRECTED [facility] Stop: 03/23/17 14:14 Last Admin: 03/23/17 08:12 Dose: 125 mls/hr Lactated Ringer's (Ringers, Lactated) 500 mls @ 500 mls/hr IV .BOLUS ONE Stop: 03/23/17 10:27 Last Admin: 03/23/17 09:38 Dose: 500 mls/hr Lactated Ringer's (Ringers, Lactated) Confirm Administered Dose 1,000 mls @ as directed .ROUTE .STK-MED ONE Stop: 03/23/17 09:30 Last Admin: 03/23/17 09:41 Dose: Not Given Influenza Virus Vaccine (Pharmacy To Dose - Influenza Vaccine) 1 each IM ONETIME ONE Stop: 03/23/17 03:18 Influenza Virus Vaccine (Flulaval Quad 3651-2256) 60 mcg IM .ONCE ONE Stop: 03/23/17 10:01 Ketorolac Tromethamine (Toradol) Confirm Administered Dose 30 mg .ROUTE .STK- MED ONE Stop: 03/23/17 05:57 Ketorolac Tromethamine (Toradol) 30 mg IVPUSH Q6H [facility] Stop: 03/24/17 00:01 Last Admin: 03/24/17 00:03 Dose: 30 mg Metoclopramide HCl (Reglan) 10 mg IVPUSH ONETIME ONE Stop: 03/23/17 02:55 Last Admin: 03/23/17 04:31 Dose: 10 mg Misoprostol (Cytotec) 400 mcg PO NOW STA Stop: 03/23/17 09:26 Last Admin: 03/23/17 09:37 Dose: 400 mcg Misoprostol (Cytotec) Confirm Administered Dose 400 mcg .ROUTE .STK-MED ONE Stop: 03/23/17 09:29 Last Admin: 03/23/17 09:38 Dose: Not Given Misoprostol (Cytotec) 200 mcg PO Q6H [facility] Last Admin: 03/24/17 01:56 Dose: 200 mcg Morphine Sulfate (Duramorph Pf) Confirm Administered Dose 10 mg .ROUTE .STK-MED ONE Stop: 03/23/17 04:43 Oxytocin (Pitocin) Confirm Administered Dose 20 unit .ROUTE .STK-MED ONE Stop: 03/23/17 04:46 Phenylephrine HCl (Trino-Synephrine) Confirm Administered Dose 10 mg .ROUTE .STK- MED ONE Stop: 10/31/17 04:47 Sodium Chloride (Saline Flush) 10 ml FLUSH ASDIRECTED PRN PRN Reason: Keep Vein Open - Interaction Disposition, : in Room with Family Infant Interaction: Holding Feeding: Continues to Breastfeed Support Person: Significant Other - Recovery Exam Fundal Tone: Firm Fundal Level: At Umbilicus Fundal Placement: Midline Lochia Amount: Small, Moderate Lochia Color: Rubra/Red Perineum Description: Intact, Minimal Bruising/Swelling Episiotomy/Laceration: None Bladder Status: Indwelling Catheter in Place (D/C today) - Exam General: Alert, Oriented HEENT: Pupils Equal Neck: Supple Lungs: Clear to Auscultation, Normal Respiratory Effort Cardiovascular: Regular Rate, Regular Rhythm GI/Abdominal Exam: Normal Bowel Sounds, Soft, Non-Tender, No Organomegaly, No Distention, No Abnormal Bruit, No Mass, Pelvis Stable Extremities: Normal Inspection, Normal Range of Motion, Non-Tender, No Pedal Edema, Normal Capillary Refill Skin: Warm, Dry, Intact Wound/Incisions: Healing Well Psy/Mental Status: Alert, Normal Affect, Normal Mood - Problem List & Annotations (1) 38 weeks gestation of SNOMED Code(s): 13996486 Code(s): Z3A.38 - 38 WEEKS GESTATION OF Status: Acute Current Visit: Yes (2) GBS carrier SNOMED Code(s): 5553327368914 Code(s): Z22.330 - CARRIER OF GROUP B STREPTOCOCCUS Status: Acute Current Visit: Yes (3) delivery, delivered, current hospitalization SNOMED Code(s): 704327735 Code(s): O82 - ENCOUNTER FOR DELIVERY WITHOUT INDICATION Status: Acute Current Visit: Yes (4) Gestational diabetes SNOMED Code(s): 31967278 Code(s): O24.419 - GESTATIONAL DIABETES MELLITUS IN , UNSP CONTROL Status: Acute Current Visit: Yes Qualifiers: Gestational diabetes mellitus control: diet-controlled Trimester: third trimester Qualified Code(s): O24.410 - Gestational diabetes mellitus in , diet controlled (5) Anemia in , delivered, with complication, current hospitalization SNOMED Code(s): 910240272 Code(s): O99.03 - ANEMIA COMPLICATING THE PUERPERIUM Status: Acute Current Visit: Yes - Problem List Review Problem List Initiated/Reviewed/Updated: No - My Orders Last 24 Hours: My Active Orders 03/23/17 09:00 Simethicone 80 mg PO PCBED 03/23/17 09:48 Urinary Catheter Assessment [RC] ASDIRECTED 03/23/17 19:00 Lactated Ringers [Ringers, Lactated] 500 ml IV ASDIRECTED 03/23/17 Lunch Regular Diet [DIET] 03/24/17 06:03 Urinary Catheter Removal [RC] Per Unit Routine 03/24/17 06:08 Ibuprofen [Motrin] 600 mg PO Q6H PRN 03/24/17 07:39 Misoprostol [Cytotec] 200 mcg PO BID PRN 03/25/17 05:11 CBC WITH AUTO DIFF [HEME] Routine - Plan Plan:: 1 repeat CBC at noon 2 Lasix 10 mg IV 3 type and crossmatch 4 units packed red blood cells in case needed 4 Percocet 2 tablets by mouth now 5 blood sugar 111
[2017-03-24] MEDS: Simethicone 80 MG Tab.Chew PO SCH ×4 (09:46→21:40)
[2017-03-25] MEDS: Acetaminophen/oxyCODONE 325-5 MG Tab PO PRN (08:11)
[2017-03-25] MEDS: Simethicone 80 MG Tab.Chew PO SCH (08:11)
--- NOTE | 2017-03-25 08:33 | PCM.DCSUM1 ---
Discharge Summary - Hospital Course Free Text/Narrative:: [facility] Post-Op/Procedure Note Patient Name: MILAGROS MOSS Date of : 89 Patient Status: Inpatient Attending Provider: Jose Lombardo Date: 03/23/17 05:55 Initialization Date: 03/23/17 05:55 - General Post-Op/Procedure Note Date of Surgery/Procedure: 03/23/17 Operative Procedure(s): Repeat low segment transverse Pre Op Diagnosis: 38 weeks 6 days estimated gestational age, previous section, gestational diabetes, group B strep carrier Post-Op Diagnosis: Same Anesthesia Technique: Spinal Primary Surgeon: Jose Lombardo Secondary Surgeon: Frank Lizarraga Anesthesia Provider: Pineda Weinberg Reason Assistant Finance Manager Was Necessary: Patient safety decrease comorbidity, co-mortality, retraction, obese patient, facility standard of care. Role of Assistant Finance Manager: Patient safety, retraction, reduce operating time. Fluid Replacement, Intraop: 3,500 Output, Urine Amount: 475 EBL in mLs: 800 Drain/Tube Comments:: Becerra catheter Complications: None Condition: Good Free Text/Narrative:: Intake & Output 03/22/17 03/22/17 03/23/17 14:59 22:59 06:59 Intake Total 1000 Balance 1000 Patient was transported to operating room #1 and placed under spinal anesthesia in the supine position wedge under the right hip and right flank. Prepared and draped in a sterile fashion including vaginal prep and Becerra catheter placed gravity drainage and abdominal prep performed. SCDs in place and functioning prior surgery 3 g of Ancef given prior surgery. Timeout performed. Adequate level of anesthesia was confirmed patient's was brought to the operating room injecting 20 mL of 0.5% Marcaine in the area of the planned incision incision was made sharp section carried to into the anterior fascia peritoneal cavity was entered without difficulty bladder flap created pushed caudad the low uterine segment had thinned out due to her recurrent contractions. The low segment transverse performed amnionic fluid clear upon entry into the amnionic cavity. The vacuum extraction was required attempted with mushroom first 10 seconds in the green, replaced with final vacuum 15 seconds in the green with delivery of a female liveborn 0527 hrs. on Wednesday03/23/17 weight 8 lbs. 12 oz. 8/9 at one and [address] Cat glass cut off supervisor in attendance. Cord blood was collected from three-vessel cord the placenta was removed manually endometrial cavity inspected sponge needle pack asthma sharp count correct times one the uterine incision closed in 2 layers with 0 Monocryl running locking suture for the first layer and second layer modified Lembert horizontal dictating suture of 0 Monocryl as well. 2 additional [id number]-ebgmp sutures were placed for hemostasis utilizing 0 Monocryl. Both tubes and ovaries were normal clot screen from the gutters and cul-de-sac uterus replaced into the abdominal cavity and the area of surgery inspected no bleeding sponge needle pack asthma sharp count correct 2. Anterior fascia was closed with a running suture of #1 PDS irrigation carried out for the subcutaneous tissue and 3 interrupted sutures of 0 Monocryl placed to approximate the subcutaneous tissue and the skin was closed subcuticular with 3-0 Monocryl Elmer needle. Preneo Dermabond applied. Patient transported postanesthesia care unit in satisfactory condition no blood transfusions required. HgB 7.0 03/25/17 day of dismissal. Placed on PNV at breakfast and iron /vitamin C at lunch, supper, and hs. Colace for constipation. Tepid showers. No tub bath x6 weeks. HPI Initial Comments: [facility] Post-Op/Procedure Note Patient Name: MILAGROS MOSS Date of : 89 Patient Status: Inpatient Attending Provider: Jose Lombardo Date: 03/23/17 05:55 Initialization Date: 03/23/17 05:55 - General Post-Op/Procedure Note Date of Surgery/Procedure: 03/23/17 Operative Procedure(s): Repeat low segment transverse Pre Op Diagnosis: 38 weeks 6 days estimated gestational age, previous section, gestational diabetes, group B strep carrier Post-Op Diagnosis: Same Anesthesia Technique: Spinal Primary Surgeon: Jose Lombardo Secondary Surgeon: Frank Lizarraga Anesthesia Provider: Pineda Weinberg Reason Assistant Finance Manager Was Necessary: Patient safety decrease comorbidity, co-mortality, retraction, obese patient, facility standard of care. Role of Assistant Finance Manager: Patient safety, retraction, reduce operating time. Fluid Replacement, Intraop: 3,500 Output, Urine Amount: 475 EBL in mLs: 800 Drain/Tube Comments:: Becerra catheter Complications: None Condition: Good Free Text/Narrative:: Intake & Output 03/22/17 03/22/17 03/23/17 14:59 22:59 06:59 Intake Total 1000 Balance 1000 Patient was transported to operating room #1 and placed under spinal anesthesia in the supine position wedge under the right hip and right flank. Prepared and draped in a sterile fashion including vaginal prep and Becerra catheter placed gravity drainage and abdominal prep performed. SCDs in place and functioning prior surgery 3 g of Ancef given prior surgery. Timeout performed. Adequate level of anesthesia was confirmed patient's was brought to the operating room injecting 20 mL of 0.5% Marcaine in the area of the planned incision incision was made sharp section carried to into the anterior fascia peritoneal cavity was entered without difficulty bladder flap created pushed caudad the low uterine segment had thinned out due to her recurrent contractions. The low segment transverse performed amnionic fluid clear upon entry into the amnionic cavity. The vacuum extraction was required attempted with mushroom first 10 seconds in the green, replaced with final vacuum 15 seconds in the green with delivery of a female liveborn 0527 hrs. on Wednesday03/23/17 weight 8 lbs. 12 oz. 8/9 at one and [address] Cat glass cut off supervisor in attendance. Cord blood was collected from three-vessel cord the placenta was removed manually endometrial cavity inspected sponge needle pack asthma sharp count correct times one the uterine incision closed in 2 layers with 0 Monocryl running locking suture for the first layer and second layer modified Lembert horizontal dictating suture of 0 Monocryl as well. 2 additional bsjtxy-[id number] sutures were placed for hemostasis utilizing 0 Monocryl. Both tubes and ovaries were normal clot screen from the gutters and cul-de-sac uterus replaced into the abdominal cavity and the area of surgery inspected no bleeding sponge needle pack asthma sharp count correct 2. Anterior fascia was closed with a running suture of #1 PDS irrigation carried out for the subcutaneous tissue and 3 interrupted sutures of 0 Monocryl placed to approximate the subcutaneous tissue and the skin was closed subcuticular with 3-0 Monocryl Elmer needle. Preneo Dermabond applied. Patient transported postanesthesia care unit in satisfactory condition no blood transfusions required. HgB 7.0 03/25/17 day of dismissal. Placed on PNV at breakfast and iron /vitamin C at lunch, supper, and hs. Colace for constipation. Tepid showers. No tub bath x6 weeks. Brief History: [facility] . Post-Op/Procedure Note. [facility]: [id number] Date of : Patient Status: Inpatient. Attending Provider: Jose Lombardo Number: [id number]. Date: 03/23/17 05:55Initialization Date: 03/23/17 05:55. - General Post-Op/Procedure Note. Date of Surgery/Procedure: 03/23/17. Operative Procedure(s): Repeat low segment transverse . Pre Op Diagnosis: 38 weeks 6 days estimated gestational age, previous section , gestational diabetes, group B strep carrier. Post-Op Diagnosis: Same. Anesthesia Technique: Spinal. Primary Surgeon: Jose Lobmardo. Secondary Surgeon: Frank Lizarraga. Anesthesia Provider: Pineda Weinberg. Reason Assistant Finance Manager Was Necessary: Patient safety decrease comorbidity, co-mortality, retraction, obese patient, facility standard of care. Role of Assistant Finance Manager: Patient safety, retraction, reduce operating time. Fluid Replacement, Intraop: 3,500. Output, Urine Amount: 475. EBL in mLs: 800. Drain/Tube Comments:: Becerra catheter. Complications: None. Condition: Good. Free Text/Narrative:: Intake & Output. 03/22/1710. [id number]:[id number]. Intake [id number]. [id number]. Patient was transported to operating room #1 and placed under spinal anesthesia in the supine position wedge under the right hip and right flank. Prepared and draped in a sterile fashion including vaginal prep and Becerra catheter placed gravity drainage and abdominal prep performed. SCDs in place and functioning prior surgery 3 g of Ancef given prior surgery. Timeout performed. Adequate level of anesthesia was confirmed patient's was brought to the operating room injecting 20 mL of 0.5% Marcaine in the area of the planned incision incision was made sharp section carried to into the anterior fascia peritoneal cavity was entered without difficulty bladder flap created pushed caudad the low uterine segment had thinned out due to her recurrent contractions. The low segment transverse performed amnionic fluid clear upon entry into the amnionic cavity. The vacuum extraction was required attempted with mushroom first 10 seconds in the green, replaced with final vacuum 15 seconds in the green with delivery of a female liveborn 0527 hrs. on Wednesday03/23/17 weight 8 lbs. 12 oz. 8/9 at one and [address] Cat glass cut off supervisor in attendance. Cord blood was collected from three-vessel cord the placenta was removed manually endometrial cavity inspected sponge needle pack asthma sharp count correct times one the uterine incision closed in 2 layers with 0 Monocryl running locking suture for the first layer and second layer modified Lembert horizontal dictating suture of 0 Monocryl as well. 2 additional xafcgk-wy-sbzob sutures were placed for hemostasis utilizing 0 Monocryl. Both tubes and ovaries were normal clot screen from the gutters and cul-de-sac uterus replaced into the abdominal cavity and the area of surgery inspected no bleeding sponge needle pack asthma sharp count correct 2. Anterior fascia was closed with a running suture of #1 PDS irrigation carried out for the subcutaneous tissue and 3 interrupted sutures of 0 Monocryl placed to approximate the subcutaneous tissue and the skin was closed subcuticular with 3-0 Monocryl Elmer needle. Preneo Dermabond applied. Patient transported postanesthesia care unit in satisfactory condition no blood transfusions required. HgB 7.0 03/25/17 day of dismissal. Placed on PNV at breakfast and iron/vitamin C at lunch, supper, and hs. Colace for constipation. Tepid showers. No tub bath x6 weeks. - Discharge Data Discharge Date: 03/25/17 Discharge Disposition: Home, Self-Care 01 Condition: Good - Discharge Diagnosis/Problem(s) (1) 38 weeks gestation of SNOMED Code(s): 20823295 ICD Code: Z3A.38 - 38 WEEKS GESTATION OF Status: Acute Current Visit: Yes (2) GBS carrier SNOMED Code(s): 9560706794897 ICD Code: Z22.330 - CARRIER OF GROUP B STREPTOCOCCUS Status: Acute Current Visit: Yes (3) delivery, delivered, current hospitalization SNOMED Code(s): 114139705 ICD Code: O82 - ENCOUNTER FOR DELIVERY WITHOUT INDICATION Status: Acute Current Visit: Yes (4) Gestational diabetes SNOMED Code(s): 10423506 ICD Code: O24.419 - GESTATIONAL DIABETES MELLITUS IN , UNSP CONTROL Status: Acute Current Visit: Yes Qualifiers: Gestational diabetes mellitus control: diet-controlled Trimester: third trimester Qualified Code(s): O24.410 - Gestational diabetes mellitus in , diet controlled (5) Anemia in , delivered, with complication, current hospitalization SNOMED Code(s): 315557181 ICD Code: O99.03 - ANEMIA COMPLICATING THE PUERPERIUM Status: Acute Current Visit: Yes - Patient Summary/Data Operative Procedure(s) Performed: Repeat low segment transverse Complications: anemia Consults: none Hospital Course: uneventful except anemia - Patient Instructions Diet: Regular Diet as Tolerated Driving: Do Not Drive (2 weeks) Showering/Bathing: May Shower, No Tub Bathing/Swimming (x6 weeks) Wound/Incision Care: Keep Operative Site/Wound Site Clean and Dry Notify Provider of: Fever, Increased Pain, Swelling and Redness, Drainage, Nausea and/or Vomiting - Discharge Plan Prescriptions/Med Rec: Acetaminophen/oxyCODONE [Percocet 325-5 MG] 1 tab PO Q6H PRN #30 tablet PRN Reason: Pain Iron,Carbonyl/Ascorbic Acid [Iron 100-Vitamin C Tablet] 1 each PO TID #100 tablet #103/Iron Fumarate/Fa [ ] 1 each PO DAILY #100 tablet Home Medications: Home Meds Acetaminophen [Tylenol] 650 mg PO Q6H PRN #50 tablet 03/25/17 [Rx] Acetaminophen/oxyCODONE [Percocet 325-5 MG] 1 tab PO Q6H PRN #30 tablet [Rx] Docusate Sodium [Colace] 100 mg PO Q12H PRN #60 cap 03/25/17 [Rx] Ibuprofen [IJD: Ibuprofen] 600 mg PO Q6H PRN #50 tablet 03/25/17 [Rx] Iron,Carbonyl/Ascorbic Acid [Iron 100-Vitamin C Tablet] 1 each PO TID #100 tablet 03/25/17 [Rx] Lanolin [Lansinoh HPA] 1 applic TOP ASDIRECTED PRN tube 11/02/17 [Rx] #103/Iron Fumarate/Fa [ ] 1 each PO DAILY #100 tablet [Rx] Socorro Amira [Tucks] 1 pad TOP ASDIRECTED PRN pad 03/25/17 [Rx] Patient Handouts: Smoking Cessation, Tips for Success, [id number], Smoking Hazards - Discharge Summary/Plan Comment DC Time >30 min.: No - Patient Data Vitals - Most Recent: Last Vital Signs Temp 98.4 F 03/25/17 06:13 Pulse 80 03/25/17 06:13 Resp 15 03/25/17 06:13 BP 115/63 03/25/17 06:13 Pulse Ox 96 03/24/17 20:40 Weight - Most Recent: 273 lb 8 oz I&O - Last 24 hours: Intake & Output 03/24/17 03/25/17 03/25/17 22:59 06:59 14:59 Intake Total 180 Output Total 1000 Balance -820 Lab Results - Last 24 hrs: Laboratory Results - last 24 hr 03/25/17 Range/Units 06:05 WBC 6.16 (3.98-10.04) K/mm3 RBC 2.52 L (3.98-5.22) M/mm3 Hgb 7.0 L* (11.2-15.7) gm/L Hct 22.6 L (34.1-44.9) % MCV 89.7 (79.4-94.8) fl MCH 27.8 (25.6-32.2) pg MCHC 31.0 L (32.2-35.5) g/dl RDW Std Deviation 41.9 (36.4-46.3) fL Plt Count 208 (182-369) K/mm3 MPV 9.5 (9.4-12.3) fl Neut % (Auto) 55.9 (34.0-71.1) % Lymph % (Auto) 32.5 (19.3-51.7) % [place] % (Auto) 7.8 (4.7-12.5) % Eos % (Auto) 3.1 (0.7-5.8) Baso % (Auto) 0.2 (0.1-1.2) % Neut # (Auto) 3.45 (1.56-6.13) K/mm3 Lymph # (Auto) 2.00 (1.18-3.74) K/mm3 [place] # (Auto) 0.48 H (0.24-0.36) K/mm3 Eos # (Auto) 0.19 (0.04-0.36) K/mm3 Baso # (Auto) 0.01 (0.01-0.08) K/mm3 Manual Slide Review Abnormal smear Med Orders - Current: Current Medications Acetaminophen (Tylenol) 650 mg PO Q4H PRN PRN Reason: mild pain or fever Diphenhydramine HCl (Benadryl) 25 mg IVPUSH Q6H PRN PRN Reason: Itching or Nausea Last Admin: 03/23/17 13:45 Dose: 25 mg Docusate Sodium (Colace) 100 mg PO Q12H PRN PRN Reason: Constipation Emollient Ointment (Lansinoh Hpa) 0 gm TOP ASDIRECTED PRN PRN Reason: Sore Nipples Ephedrine Sulfate (Ephedrine Sulfate) 5 mg IVPUSH SEECOMMENT PRN PRN Reason: Other Lactated Ringer's (Ringers, Lactated) 500 mls @ 250 mls/hr IV ASDIRECTED [facility] Last Admin: 03/23/17 19:50 Dose: 250 mls/hr Ibuprofen (Motrin) 600 mg PO Q6H PRN PRN Reason: mild pain or fever Last Admin: 03/24/17 15:35 Dose: 600 mg Naloxone HCl (Narcan) 0.1 mg IVPUSH SEECOMMENT PRN PRN Reason: Respiratory Depression Ondansetron HCl (Zofran) 4 mg IV Q8H PRN PRN Reason: Nausea/Vomiting Oxycodone/Acetaminophen (Percocet 325-5 Mg) 2 tab PO Q4H PRN PRN Reason: Pain (moderate 4-6) Last Admin: 03/25/17 08:11 Dose: 2 tab Simethicone (Simethicone) 80 mg PO PCBED [facility] Last Admin: 03/25/17 08:11 Dose: 80 mg Sodium Chloride (Saline Flush) 10 ml FLUSH ASDIRECTED PRN PRN Reason: Keep Vein Open Witch Amira (Tucks) 1 pad TOP ASDIRECTED PRN PRN Reason: Perineal Comfort Measure Discontinued Medications Bupivacaine HCl (Marcaine 0.5%) Confirm Administered Dose 30 ml .ROUTE .STK-MED ONE Stop: 03/23/17 04:27 Last Admin: 03/23/17 05:21 Dose: 20 ml Cefazolin Sodium (Ancef) Confirm Administered Dose 2 gm .ROUTE .STK-MED ONE Stop: 03/23/17 04:43 Cefazolin Sodium (Ancef) Confirm Administered Dose 1 gm .ROUTE .STK-MED ONE Stop: 03/23/17 05:20 Citric Acid/Sodium Citrate (Bicitra Solution) 30 ml PO ONETIME ONE Stop: 03/23/17 02:55 Last Admin: 03/23/17 04:35 Dose: 30 ml Diphenhydramine HCl (Benadryl) 25 mg IVPUSH Q6H PRN PRN Reason: Itching Furosemide (Lasix) 10 mg IVPUSH NOW ONE Stop: 03/23/17 10:21 Last Admin: 03/23/17 10:26 Dose: 10 mg Cefazolin Sodium/Dextrose 1 gm (/ Premix) 50 mls @ 100 mls/hr IV ONETIME ONE Stop: 03/23/17 03:23 Last Admin: 03/23/17 09:40 Dose: Not Given Cefazolin Sodium/Dextrose 2 gm (/ Premix) 50 mls @ 100 mls/hr IV ONETIME ONE Stop: 03/23/17 03:23 Last Admin: 03/23/17 09:40 Dose: Not Given Lactated Ringer's (Ringers, Lactated) 1,000 mls @ 125 mls/hr IV ASDIRECTED [facility] Last Admin: 03/23/17 04:10 Dose: 125 mls/hr Oxytocin/Lactated Ringer's (Pitocin In Lr 10 Units/1,000 Ml) 10 unit in 1,000 mls @ 100 mls/hr IV ASDIRECTED [facility] PRN Reason: Protocol Lactated Ringer's (Ringers, Lactated) Confirm Administered Dose 1,000 mls @ as directed .ROUTE .STK-MED ONE Stop: 03/23/17 06:08 Lactated Ringer's (Ringers, Lactated) Confirm Administered Dose 1,000 mls @ as directed .ROUTE .STK-MED ONE Stop: 03/23/17 06:09 Dextrose/Lactated Ringer's (Dextrose 5%-Lactated Ringers) 1,000 mls @ 125 mls/ hr IV ASDIRECTED SABINO Stop: 03/23/17 14:14 Last Admin: 03/23/17 08:12 Dose: 125 mls/hr Lactated Ringer's (Ringers, Lactated) 500 mls @ 500 mls/hr IV .BOLUS ONE Stop: 03/23/17 10:27 Last Admin: 03/23/17 09:38 Dose: 500 mls/hr Lactated Ringer's (Ringers, Lactated) Confirm Administered Dose 1,000 mls @ as directed .ROUTE .STK-MED ONE Stop: 03/23/17 09:30 Last Admin: 03/23/17 09:41 Dose: Not Given Influenza Virus Vaccine (Pharmacy To Dose - Influenza Vaccine) 1 each IM ONETIME ONE Stop: 03/23/17 03:18 Influenza Virus Vaccine (Flulaval Quad 0041-2200) 60 mcg IM .ONCE ONE Stop: 03/23/17 10:01 Ketorolac Tromethamine (Toradol) Confirm Administered Dose 30 mg .ROUTE .STK- MED ONE Stop: 03/23/17 05:57 Ketorolac Tromethamine (Toradol) 30 mg IVPUSH Q6H SABINO Stop: 03/24/17 00:01 Last Admin: 03/24/17 00:03 Dose: 30 mg Metoclopramide HCl (Reglan) 10 mg IVPUSH ONETIME ONE Stop: 03/23/17 02:55 Last Admin: 03/23/17 04:31 Dose: 10 mg Misoprostol (Cytotec) 400 mcg PO NOW STA Stop: 03/23/17 09:26 Last Admin: 03/23/17 09:37 Dose: 400 mcg Misoprostol (Cytotec) Confirm Administered Dose 400 mcg .ROUTE .STK-MED ONE Stop: 03/23/17 09:29 Last Admin: 03/23/17 09:38 Dose: Not Given Misoprostol (Cytotec) 200 mcg PO Q6H [facility] Last Admin: 03/24/17 01:56 Dose: 200 mcg Misoprostol (Cytotec) 200 mcg PO BID [facility] Last Admin: 03/24/17 21:08 Dose: Not Given Morphine Sulfate (Duramorph Pf) Confirm Administered Dose 10 mg .ROUTE .STK-MED ONE Stop: 03/23/17 04:43 Oxytocin (Pitocin) Confirm Administered Dose 20 unit .ROUTE .STK-MED ONE Stop: 03/23/17 04:46 Phenylephrine HCl (Trino-Synephrine) Confirm Administered Dose 10 mg .ROUTE .STK- MED ONE Stop: 03/23/17 04:47 Sodium Chloride (Saline Flush) 10 ml FLUSH ASDIRECTED PRN PRN Reason: Keep Vein Open *Q Meaningful Use (DIS) - VTE *Q VTE Criteria *Q: - Stroke *Q Stroke Criteria *Q: - AMI *Q AMI Criteria *Q:
[2017-03-25 08:41] VITALS: BP 115/66
== END 2017-03-25 10:00 | disposition home or self-care (01) | DRG 766 ==
LOC: UNDOADMOB 02:22 → JD.OB 02:22 → OBSVTOIN 02:56 → JD.OB 02:56
PROVIDERS: ADMIT Obstetrics & Gynecology; ATTEND Obstetrics & Gynecology
PROC: 10D00Z1 Extraction of Products of Conception, Low, Open Approach (ICD-10-PCS; principal; 2017-03-23)
DX: O34.211 Maternal care for low transverse scar from previous cesarean delivery (principal); Z37.0 Single live birth; N85.8 Other specified noninflammatory disorders of uterus; Z3A.39 39 weeks gestation of pregnancy; O24.420 Gestational diabetes mellitus in childbirth, diet controlled; O99.824 Streptococcus B carrier state complicating childbirth; O99.03 Anemia complicating the puerperium; Z87.891 Personal history of nicotine dependence
CPT/HCPCS: 01961; 36415; 82962; 85025; 85027; 86850; 86900; 86901; 86922; 90686; 94762; A9270-GY; G0008; J0690; J1200; J1885; J2270; J2370; J2590; J2765; J7042; J7120